=== PATIENT | female | born 1945 | race Caucasian/White ===

== ENCOUNTER 2018-05-18 16:44 | Inpatient (IN) | payer OTHER ==
[~2018-05-18] VITALS: Ht 157.5 cm; Wt 65.3 kg
[~2018-05-18 16:44] MED LIST: CIPRO500 MG PO; IMODIUM A-D2 M2 PO; JUVEN1 PKT PO; METRONIDAZOLE500 MG PO; Mylicon 125MG PO; PERCOCET 5/3251 TAB PO
[2018-05-25] MEDS ORDERED: INTESTINEX680 M1 PO (07:27)
[2018-05-25] MEDS ORDERED: LEVSIN0.125 MG PO (08:02)
== END 2018-05-25 10:34 | disposition home or self-care (01) | DRG 337 ==
LOC: SURG 16:44
PROVIDERS: Surgery
PROC: 0DNB4ZZ Release Ileum, Percutaneous Endoscopic Approach (ICD-10-PCS; principal; 2018-05-19 14:00)
PROC: 02HV33Z Insertion of Infusion Device into Superior Vena Cava, Percutaneous Approach (ICD-10-PCS; 2018-05-19 14:00)
DX: K56.51 Intestinal adhesions [bands], with partial obstruction (principal); M85.89 Other specified disorders of bone density and structure, multiple sites; K57.30 Diverticulosis of large intestine without perforation or abscess without bleeding; Z93.2 Ileostomy status